=== PATIENT | male | born 1995 | race Caucasian/White ===

== ENCOUNTER 2016-10-10 08:36 | Emergency (ER) | payer OTHER ==
[~2016-10-10 08:36] MED LIST: ADVAIR 2501 DISK W/D; HYCOTUSS EXPEC480 ML; MAXAIR AUTOHALE14 GM; PREDNISONE20 MG PO; PROVENTIL HFA6.7 GM IH; SINGULAIR10 MG
[2016-10-10] MEDS ORDERED: NO HOME MEDICATION XX (08:43)
== END 2016-10-10 10:42 ==
LOC: EDMED 08:36
PROC: 0HQGXZZ Repair Left Hand Skin, External Approach (ICD-10-PCS; principal; 2016-10-10)
DX: S61.412A Laceration without foreign body of left hand, initial encounter (principal); Z88.2 Allergy status to sulfonamides; W45.8XXA Other foreign body or object entering through skin, initial encounter
CPT/HCPCS: J7030